=== PATIENT | female | born 1985 | race Two or more races ===

== ENCOUNTER 2017-02-01 10:22 | Emergency (ER) | payer OTHER ==
[~2017-02-01] VITALS: Ht 160 cm; Wt 90.7 kg
--- NOTE | 2017-02-01 10:25 | NUR ---
Patient taken to bed 02 via wheelchair per RN.
--- NOTE | 2017-02-01 10:26 | NUR ---
EKG at bedside.
--- NOTE | 2017-02-01 10:27 | NUR ---
31/F PRESENT TO ED C/O CHEST PAIN x ONE WEEK. PATIENT STATES SHE HAD BRONCHITITS FOR THE PAST MONTH AND STARTED HAVING CHEST PAIN AND DIFFICULTY BREATHING SINCE LAST WEEK. PAIN 6/10 TIGHTNESS AND NON-RADIATING. AAOx4, PERRLA, BREATHING EVEN AND UNLABORED. ERMD NOTIFIED OF PATIENT STATUS.
[2017-02-01 10:32] VITALS: BP 115/96
[2017-02-01] MEDS ORDERED: KETOROLAC 60 MG/2 ML VIAL IM ONE (11:40)
--- NOTE | 2017-02-01 11:55 | NUR ---
XRAY at bedside.
--- NOTE | 2017-02-01 11:57 | NUR ---
PATIENT RESTING; FAMILY AT BEDSIDE; VSS; PATIENT POSITIONED FOR COMFORT; HOB ELEVATED; BEDRAILS UP X2; BED DOWN. ER MD MADE AWARE OF PT STATUS.
[2017-02-01 11:59] LABS: BASOPHILS # (AUTO) 0.3 K/uL (0.00-0.22); BASOPHILS % (AUTO) 2.4 % (0.0-2.0); EOSINOPHILS # (AUTO) 0.6 K/uL (0-0.4); HEMATOCRIT 40.2 % (36-48); HEMOGLOBIN 13.7 g/dL (12.0-16.0); LYMPHOCYTES # (AUTO) 2.8 K/uL (2.5-16.5); LYMPHOCYTES % (AUTO) 21.9 % (20.5-51.1); MEAN CORPUSCULAR HEMOGLOBIN 31 pg (27-31); MEAN CORPUSCULAR HGB CONC 34 g/dL (33-37); MEAN CORPUSCULAR VOLUME 89 fL (80-94); MONOCYTES # (AUTO) 0.8 K/uL (0.8-1.0); MONOCYTES % (AUTO) 6.5 % (1.7-9.3); NEUTROPHILS # (AUTO) 8.3 K/uL (1.8-7.7); NEUTROPHILS % (AUTO) 64.2 % (42.2-75.2); PLATELET COUNT (AUTO) 408 K/uL (140-450); RED CELL DISTRIBUTION WIDTH 12.2 % (11.6-13.7)
[2017-02-01 12:18] LABS: WHITE BLOOD COUNT (AUTO) 12.8 K/uL (4.8-10.8)
[2017-02-01 12:43] LABS: ALBUMIN 3.7 g/dL (3.4-5.0); ANION GAP 8.6 (8-16); CARBON DIOXIDE 27.7 mmol/L (21-32); CREATININE 0.8 mg/dL (0.6-1.3); POTASSIUM 4.3 mmol/L (3.5-5.1); TOTAL BILIRUBIN 0.4 mg/dL (0.0-1.0)
--- NOTE | 2017-02-01 13:07 | NUR ---
Patient discharged with v/s stable. Written and verbal after care instructions given and explained. Patient alert, oriented and verbalized understanding of instructions. Ambulatory with steady gait. All questions addressed prior to discharge. ID band removed. Patient advised to follow up with PMD. Rx of MOTRION 600MG TABLET given. Patient educated on indication of medication including possible reaction and side effects. Opportunity to ask questions provided and answered.
[2017-02-01 13:08] VITALS: BP 117/70
== END 2017-02-01 13:07 | disposition home or self-care (01) ==
LOC: MED 10:22
DX: M94.0 Chondrocostal junction syndrome [Tietze] (principal); J45.909 Unspecified asthma, uncomplicated; E78.00 Pure hypercholesterolemia, unspecified; Z88.1 Allergy status to other antibiotic agents
CPT/HCPCS: 36415; 71010; 80053; 81002; 81025; 84484; 85025; 85379; 93005; 96372; 99285; J1885; Q0092

== ENCOUNTER 2022-03-01 19:46 | Emergency (ER) | payer OTHER ==
[~2022-03-01] VITALS: Ht 160 cm; Wt 59.0 kg
[2022-03-01 19:59] VITALS: BP 119/50
--- NOTE | 2022-03-01 20:19 | NUR ---
Dr. Aranda examining patient.
[2022-03-01] MEDS ORDERED: MORPHINE SULFATE 4 MG/ML SYR IM ONE (20:20)
[2022-03-01] MEDS ORDERED: ACET-8905 PO (20:26)
--- NOTE | 2022-03-01 20:32 | NUR ---
Patient called her family for a ride.
[2022-03-01 20:41] VITALS: BP 122/62
--- NOTE | 2022-03-01 20:41 | NUR ---
Patient discharged with v/s stable. Written and verbal after care instructions given and explained. Patient alert, oriented and verbalized understanding of instructions. Ambulatory with steady gait. All questions addressed prior to discharge. ID band removed. Patient advised to follow up with PMD. Rx of [place] given. Patient educated on indication of medication including possible reaction and side effects. Opportunity to ask questions provided and answered.
== END 2022-03-01 20:41 | disposition home or self-care (01) ==
LOC: MED 19:46
DX: M54.50 Low back pain, unspecified (principal); J45.909 Unspecified asthma, uncomplicated; Z88.1 Allergy status to other antibiotic agents; Z98.84 Bariatric surgery status
CPT/HCPCS: 96372; 99283; J2270